=== PATIENT | female | born 1980 | race Caucasian/White ===

== ENCOUNTER 2025-04-01 09:28 | Outpatient (AMB) | payer OTHER, SELFPAY ==
[2025-04-01 09:59] VITALS: BMI 36.6
--- NOTE | 2025-04-01 09:59 | HO.SPINEOV ---
Vital Signs 04/01/25 09:59 Height 5 ft 5 in Weight 220 lb BMI 36.6 Intake Visit Reasons: low back pain Intake Note: Ms. Martinez is here today c/o Low back pain. MRI done at [place]. Electrical Lineworker Required: No Allergies tramadol Allergy (Unknown, Verified 04/01/25 10:00) Unknown trazodone Allergy (Unknown, Verified 04/01/25 10:00) Unknown Physical Exam Vital Signs: BMI result Body Mass Index 36.6 Assessment & Plan Assessment & Plan (1) Lumbar degenerative disc disease: Code(s): M51.369 - Other intervertebral disc degeneration, lumbar region without mention of lumbar back pain or lower extremity pain Category: Medical (2) Chronic SI joint pain: Code(s): M53.3 - Sacrococcygeal disorders, not elsewhere classified; G89.29 - Other chronic pain Category: Medical Plan Dear Ashley, Thank you for referring Mrs Martinez to our office today. She is a 44-year-old female history of IV drug abuse, heroin and cocaine use, history of 3 previous back surgeries, the last 1 being an anterior lumbar interbody fusion 12 years ago. She was doing well in her usual state of health with regard to her back until about 4 months ago when she started to notice a right-sided low back pain that began radiating down into her right hip. She will also feel intermittent pain down her leg as well and a sensation that her leg is going to give out. She is very active on a farm and this pain has caused her to have to stop a lot of the activity she was doing and helping out with. She was take [id number] pain medications to help, and will drink alcohol to help alleviate the pain. She has not used any opiates thus far and this process due to the risk of addiction. She comes in today with an MRI showing postsurgical changes and synovial cyst at L3-4. She has done no conservative treatment up to this point. PMH: Hypertension, diabetes with what she tells me as an A1c of 7.4, high cholesterol, ADHD, depression, history of IV drug abuse with MRSA infection and osteomyelitis in her back about 5 years ago. History of anterior lumbar interbody fusion, 3 shoulder surgeries, ulnar nerve release, carpal tunnel release, 2 C-sections. There may also be an issue with her pancreas but she could not quite give me details as to what that was but maybe related to alcohol use. Denies any cardiopulmonary issues but she does take a an inhaler to help with breathing at times. My suspicion is that she has a mild COPD or asthma could be the problem. Denies any history of bleeding disorders, blood clots, cancer, liver or renal disease. Social hx: She smokes a half a pack a day, she drinks at least 6 pack of beer a day, does not use any recreational drugs nor any heart or illicit drugs. She has been sober for 5 years. Medications: [place] 3, propranolol, Crestor, Celexa, losartan, Combivent and Mounjaro Allergies: Trazodone, tramadol Physical exam: Awake alert oriented no acute distress, she has tenderness over palpation of the right SI joint, positive pain in the hip in the right low back with JOSÉ MIGUEL testing. Positive Gaenslen test. Strength and reflexes otherwise normal. She has a scar in her anterior abdomen which is well healed Kaela large scar in her back which is well healed. Imaging review: Lumbar MRI done at [facility] shows postsurgical changes L4-5 L5-S1 with anterior lumbar interbody cages, postsurgical changes in the soft tissues of the posterior lumbar spine. Her L3-4 disc looks quite good, there is no malalignment. No other significant degenerative changes found. There is a small posteriorly projecting synovial cyst at L3-4. We sent the patient for standing flexion-extension x-rays which showed no signs of instability. Impression: 44-year-old female with an extensive lumbar history as outlined above with laminectomies, anterior lumbar interbody fusion 12 years ago, remote history of IV drug abuse 5 years ago with osteomyelitis of the lumbar spine, presents with acute onset right-sided low back pain radiating into her hip, to some degree down her leg. Dr. Aguilar and I reviewed her imaging, we do not have a clear explanation for her pain. Based on the localization of where it is in the lumbar spine, it does seem to radiate over the SI joint. She does have some positive provocative tests for SI joint inflammation. We are going to send her for an SI joint injection on the right side and see if we can make a diagnosis here. If that does not help, I am not sure if there is anything more we can do for her as there are no major structural abnormalities in the lumbar spine that look amenable to surgery. Thank you for allowing us to care for your patient. The total time spent with this visit with this patient was 45 minutes reviewing history, physical exam, lumbar imaging review, and implementation of treatment plan or further diagnostic testing oBwen Aguilar MD,PhD [facility] Orders: Orders XR lumbar spine 4V min Today M51.369 - Other intervertebral disc degeneration, lumbar region without mention of lumbar back pain or lower extremity pain Referrals Physiatry Referral G89.29 - Other chronic pain, M53.3 - Sacrococcygeal disorders, not elsewhere classified Coding Level of Care Code New Pt Level 4 (64663) Diagnoses Lumbar degenerative disc disease M51.369 Chronic SI joint pain M53.3; G89.29
--- OUTSIDE RECORDS SUMMARY | 2025-04-01 10:11 | XMS_ITS | Clinical Summary ---
Author Organization [facility] Address [address] [id number] Care Team Providers Care Np Name Role Phone Jamee De La Cruz Primary Care Provider [phone] Allergies Active Allergy Reactions Criticality Noted Date Comments Hydromorphone Vomiting 03/27/2022 Tramadol Hives 03/27/2022 Trazodone Heartburn 03/27/2022 Medications albuterol (PROAIR HFA,VENTOLIN HFA) 90 mcg inhaler ProAir HFA 108 (90 Base) MCG/ACT Inhalation Aerosol Solution INHALE 1 TO 2 PUFFS EVERY 6 HOURS NEEDED. Quantity: 1; Refills: 3 MIGUE RAMIREZ M.D.; Started 18-Feb-2012 Active8.5 GM Inhaler 2 Active QUEtiapine (SEROquel) 50 mg tablet Take 50 mg by mouth nightly. 2 Active propranoloL (INDERAL) 20 mg tablet Take 20 mg by mouth 2 times a day as needed. 1 Active escitalopram (LEXAPRO) 10 mg tablet Take 10 mg by mouth once a day. 2 Active lisinopriL (PRINIVIL,ZESTR IL) 10 mg tablet Take 10 mg by mouth once a day. 2 Active gabapentin (NEURONTIN) 400 mg capsule Take 400 mg by mouth 3 times a day. 2 Active dextroamphetami ne-amphetamine (ADDERALL) 20 mg tablet Take 20 mg by mouth once a day. 2 Active PARoxetine (PAXIL) 20 mg tablet PARoxetine HCl - 20 MG Oral Tablet TAKE 1/2 tab in am for 5 days, then take 1 tab for 5 day, then take, 1 AND 1/2 TABLETS DAILY. Quantity: 30; Refills: 0 CORWIN, GIOVANA ; Started Active 5 Active Combivent Respimat 20-100 mcg/actuation inhaler 1 puff every 6 hours as needed. 2 Active Active Problems Problem Noted Date Diagnosed Date Bipolar affective 03/02/2014 Cocaine abuse 11/25/2013 Opiate dependence 11/10/2013 ADHD (attention deficit hype ractivity disorder), combined type 06/01/2013 Generalized anxiety disorder 06/01/2013 Pain in joint of left shoulder 12/18/2012 Stress incontinence in female 01/13/2012 Chronic pain of left elbow 01/13/2012 Tobacco abuse counseling 10/17/2011 Lumbago 08/06/2009 Depression 08/06/2009 Family History Medical History Relation Name Comments Other Brother 1 Family history of Panic disorder with agoraphobia Other Brother 2 Family history of Anxiety, generalized Other Brother 3 Family History of alcoholism Other Brother 4 Family History of substance abuse Other Father Family History of attention deficit hyperactivity disorder (ADHD) Other Mother Family History of attention deficit hyperactivity disorder (ADHD) Relation Name Status Comments Brother 1 Brother 2 Brother 3 Brother 4 Father Mother Social History Tobacco Use Types Packs/Day Years Used Date Smoking Tobacco: Every Day Tobacco Cessation:Ready to Q uit: Not Asked; Counseling Given: Not Answered Comments:: Comments Unknown Sex and Gender Information Value Date Recorded Sex Assigned at Female 03/26/2022 11:19 AM EDT Legal Sex Female 12:08 AM EDT Gender Identity Female 03/26/2022 11:19 AM EDT Sexual Orientation Choose not to disclose 2021 11:19 AM EDT Sexual Orientation Don't know 03/26/2022 11 :19 AM EDT Last Filed Vital Signs Vital Sign Reading Time Taken Comments Blood Pressure 142/100 03/27/2022 11:38 AM EDT Pulse 81 03/27/2022 11:38 AM EDT Temperature 37.1 C (98.7 F) 11/11/2011 11:41 AM EDT Respiratory Rate - - Oxygen Saturation 99% 06/15/2014 2:14 PM EST Inhaled Oxygen Concentration - - Weight 85.3 kg (188 lb) 03/27/2022 11:38 AM EDT Height 160 cm (5' 3 ) 03/27/2022 11:38 AM EDT Body Mass Index 33.3 03/27/2022 11:38 AM EDT Plan of Treatment Health Maintenance Due Date Last Done Comments Cervical Cancer Screening 1980 HIV Screening 1980 HPV and Pap Smear 1980 Hepatitis C Screening 1980 Pap Smear 1980 Varicella Vaccines (1 of 2 - 13+ 2-dose series) 1993 Hepatitis B Vaccines (1 of 3 - 19+ 3-dose series) 09/28 DTaP,Tdap,and Td Vaccines (1 - Tdap) 09/30/200507/2005 Mammogram 2020 Pneumococcal Vaccine: Pediat elma (0-5 Years) and At-Risk Patients (6-50 Years) (2 of 2 - PCV) 03/14/2021 03/14/2020 Alcohol/Substance Use Screening 06/30/2024 Depression Screening and Follow-Up 06/30/2024 Social Drivers of Health Annual Screening 06/30/2024 COVID-19 Vaccine (2 - 2024- season) 02/28/202502/2021 Influenza Vaccine (#1) 2025 RSV Vaccine (60+ years old a nd patients) (1 - 1-dose 75+ series) 10/13/2055 Insurance [facility] Advance Directives Documents on File Type Date Recorded Patient Carbonizer Tester Expl anation Advance Directive 09/09/2008 12:00 AM sb Thompson edical Dec Making (Adv.Dir) Advance Directive 09/09/2008 12:00 AM sb Thompson edical Dec Making (Adv.Dir) Advance Directive 04/16/2007 12:00 AM augusto Medical Decision Making (Adv.Dir) Care Teams Np Relationship Specialty Start Date End Date Jamee De La Cruz [address] [place] [address] PCP - General Internal Medicine 01/25/22
--- OUTSIDE RECORDS SUMMARY | 2025-04-01 10:11 | XMS_ITS | Clinical Summary ---
Author Organization [facility] Address [id number] [place] [id number] Care Team Providers Care Audio Video Technician Name Role Phone Frederic Aguirre MD Primary Care Provider [phone] Surgical History Surgery Date Site/Laterality Comments BACK SURGERY PROCEDURE: HISTORICAL BACK SURGERY; COMMENT: x3, last 05/15 SHOULDER SURGERY Bilateral PROCEDURE: HISTORICAL SHOULDER SURGERY; COMMENT: 2 on R, 1 on L SECTION PROCEDURE: HISTORICAL DELIVERY; COMMENT: x2 TUBAL LIGATION PROCEDURE: HISTORICAL TUBAL LIGATION CARPAL TUNNEL RELEASE 05/06/16 Right PROCEDURE: HISTORICAL CARPAL TUNNEL REL Family History Medical History Relation Name Comments Coronary artery disease Father Diabetes Father Hypertension Mother Lung cancer Mother Relation Name Status Comments Father Mother Social History Tobacco Use Types Packs/Day Years Used Date Smoking Tobacco: Every Day Cigarettes Smokeless Tobacco: Never Alcohol Use Standard Drinks/Week Comments No 0 (1 standard drink = 0.6 oz pur e alcohol) Comments Unknown Sex and Gender Information Value Date Recorded Sex Assigned at Not on file Legal Sex Female 11:47 AM EST Gender Identity Not on file Sexual Orientation Not on file Obstetrics History Plan of Treatment Health Maintenance Due Date Last Done Comments Breast Cancer Screening 1980 DTaP,Tdap,and Td Vaccines (1 - Tdap) 10/13/1999 Hepatitis B Vaccines (1 of 3 - 19+ 3-dose series) 10/13/1999 Cervical Cancer Screening: P ap Smear 2001 HPV Vaccines (1 - 3-dose SCD M series) 10/13/2007 Depression Screening 06/30/2024 COVID-19 Vaccine ( - 2023-2 5 season) 2025 Influenza Vaccine (#1) 2025 RSV Immunization Adult Patie nts (1 - 1-dose 75+ series) 10/13/2055 HIB Vaccines Aged Out No longer eligi ble based on patient's age to complete this topic Hepatitis A Vaccines Aged Out No long er eligible based on patient's age to complete this topic IPV Vaccines Aged Out No longer eligi ble based on patient's age to complete this topic MMR Vaccines Aged Out No longer eligi ble based on patient's age to complete this topic Meningococcal ACWY Vaccine Aged Out N o longer eligible based on patient's age to complete this topic Meningococcal B Vaccine Aged Out No l onger eligible based on patient's age to complete this topic Pneumococcal Vaccine: Pediat rics (0 to 5 Years) and At-Risk Patients (6 to 49 Years) Aged Out No longer eligible b ased on patient's age to complete this topic RSV Immunization Patients Un caty 20 months Aged Out No longer eligible b ased on patient's age to complete this topic Varicella Vaccines Aged Out No longer eligible based on patient's age to complete this topic Care Teams Audio Video Technician Relationship Specialty Start Date End Date Frederic Aguirre MD PCP - General Internal Medicine 03/27/16
== END 2025-04-01 11:08 | disposition home or self-care (01) ==
LOC: HO.HNS 09:29
PROVIDERS: PCP Physician Assistant; Referring Provider Physician Assistant; Visit Provider Physician Assistant
DX: M51.369 Other intervertebral disc degeneration, lumbar region without mention of lumbar back pain or lower extremity pain (principal); M53.3 Sacrococcygeal disorders, not elsewhere classified; G89.29 Other chronic pain
CPT/HCPCS: 99204

== ENCOUNTER 2025-04-01 09:28 | Outpatient (REF) | payer OTHER, SELFPAY ==
--- NOTE | ~2025-04-01 | XR_ITS ---
EXAMINATION: XR LUMBOSACRAL SPINE CLINICAL INFORMATION: M51.369 - Other intervertebral disc degeneration, lumbar region without ... COMPARISON: None available. TECHNIQUE: 4 views of the lumbar spine, inclusive of flexion and extension views, were obtained. FINDINGS: There is a gentle right convex thoracolumbar scoliosis, apex at T12-L1. There is a mildly exaggerated lumbar lordosis. There is a 7 mm anterolisthesis of L4 on L5 on the neutral view. No additional subluxation. No fracture, compression deformity, or suspicious bone lesion present. There has been prior fusion of L4-5 with titanium disc cages, and L5-S1 with carbon fiber disc graft. Hardware appears well situated. There are surgical clips ventral to L4 and L5. Disc spaces demonstrate mild diffuse disc degeneration. There is moderate facet degeneration most significant at L4-S1. Flexion and extension views demonstrate no change in anterolisthesis at L4-5. No developing subluxation. No evidence of instability. No soft tissue abnormalities are evident. XR/XR lumbar spine 4V min IMPRESSION: 1. No acute bony abnormalities of the lumbar spine. 2. No evidence of instability on flexion and extension views. There is a stable 7 mm anterolisthesis of L4 on L5. 3. Mild to moderate degenerative spondylosis, most significant in the lower lumbar spine. 4. Fusion of L4-5 and L5-S1 without definite radiographic complication. Electronically signed by: Claude Horta MD 04/01/2025 11:26 AM EDT
== END 2025-04-01 09:29 | disposition home or self-care (01) ==
LOC: HO.HOSX 09:28
PROVIDERS: PCP Physician Assistant; Referring Provider Physician Assistant; Visit Provider Physician Assistant
DX: M51.360 Other intervertebral disc degeneration, lumbar region with discogenic back pain only (principal); M53.3 Sacrococcygeal disorders, not elsewhere classified; G89.29 Other chronic pain
CPT/HCPCS: 72110

== ENCOUNTER → 2025-04-01 10:29 | Outpatient (BNV) | payer OTHER, SELFPAY | PROVIDERS: PCP Physician Assistant; Referring Provider Physician Assistant; Visit Provider Radiology Diagnostic Radiology | DX: M47.816 Spondylosis without myelopathy or radiculopathy, lumbar region (principal) | CPT/HCPCS: 72110 ==

== ENCOUNTER 2025-05-20 07:04 | Outpatient (REF) | payer OTHER, SELFPAY | END 2025-05-20 07:05 | disposition home or self-care (01) | LOC: HO.HPHYSR 07:04 | PROVIDERS: PCP Physician Assistant; Visit Provider Physical Medicine & Rehabilitation | DX: M46.1 Sacroiliitis, not elsewhere classified (principal); M53.3 Sacrococcygeal disorders, not elsewhere classified; G89.29 Other chronic pain | CPT/HCPCS: 27096; J2003; J3301; Q9967 ==

== ENCOUNTER 2025-05-20 07:04 | Outpatient (AMB) | payer OTHER, SELFPAY ==
--- OUTSIDE RECORDS SUMMARY | 2025-05-20 07:06 | XMS_ITS | Clinical Summary ---
Author Organization [facility] Address [address] [place] [address] Care Team Providers Care Master Tax Advisor Name Role Phone Jamee De La Cruz Primary Care Provider Allergies Active Allergy Reactions Criticality Noted Date [...] Screening 1980 HPV and Pap Smear 1980 Pap Smear 1980 Varicella Vaccines (1 of 2 - 13+ 2-dose series) 1993 Hepatitis B Vaccines (1 of 3 - 19+ 3-dose series) 09/28 DTaP,Tdap,and Td Vaccines (1 - Tdap) 09/30/2005 0407/2005 Mammogram 2020 Pneumococcal Vaccine: Pediat elma (0-5 Years) and At-Risk Patients (6-50 Years) (2 of 2 - PCV) 03/14/2021 03/14/2020 Alcohol/Substance Use Screening 06/30/2024 Influenza Vaccine (#1) 2025 COVID-19 Vaccine (2 - season) 02/28/202502/2021 Insurance [facility] Advance Directives Documents on File Type Date Recorded Patient Career Services Coordinator Expl anation Advance Directive 09/09/2008 12:00 AM M edical Dec Making (Adv.Dir) Advance Directive 09/09/2008 12:00 AM M edical Dec Making (Adv.Dir) Advance Directive 04/16/2007 12:00 AM [facility] Medical Decision Making (Adv.Dir) Care Teams Master Tax Advisor Relationship Specialty Start Date End Date Jamee De La Cruz [address] [place] [id number] PCP - General Internal Medicine 01/25/22
--- OUTSIDE RECORDS SUMMARY | 2025-05-20 07:06 | XMS_ITS | Clinical Summary ---
Author Organization [facility] Address [address] [place] [phone] Phone Care Team Providers Care Billing Clerk Name Role Phone Frederic Aguirre MD Primary Care Provider [phone] Surgical History Surgery Date Site/Laterality Comments BACK [...] Td Vaccines (1 - Tdap) 10/13/1999 Hepatitis A Vaccines (1 of 2 - Risk 2-dose series) 10/13/1999 Hepatitis B Vaccines (1 of 3 - 19+ 3-dose series) 10/13/1999 Pneumococcal Vaccine: Pediat rics (0 to 5 Years) and At-Risk Patients (6 to 49 Years) (1 of 2 - PCV) 10/13/1999 Cervical Cancer Screening: P ap Smear 2001 HPV Vaccines (1 - 3-dose SCD M series) 10/13/2007 Depression Screening 06/30/2024 COVID-19 Vaccine (1 - 2024-2 6 season) 2025 Influenza Vaccine (#1) 2025 Cholesterol Screening (Lipid Panel) 04/20/2025 HIV Screening 04/20/2025 Hepatitis C Screening 04/20/2025 Hypertension/CHF/CAD Annual BMP Blood Test 04/20/2025 Social Influencers of Health Screening 04/20/2025 RSV Immunization Adult Patie nts (1 - [...] on patient's age to complete this topic Insurance [place] Member Subscriber Plan / Payer (Ef fective 2025-Present) Name:POOL SMITH Relation to Subscriber:Self Name:Pool Smith Payer ID:[id number] Group ID:Not on file Type:Not on file Address: [facility] ATTN:CLAIM[employer] [address] [place] [id number] [place] [address] Care Teams Billing Clerk Relationship Specialty Start Date End Date Frederic Aguirre MD PCP - General Internal Medicine 03/27/16
--- NOTE | 2025-05-20 07:12 | A.PHYSOV_ITS ---
Vital Signs 05/20/25 07:14 Height 5 ft 5 in Weight 204 lb BMI 33.9 BP 119/90 H Intake Visit Reasons: Right Sacroiliac Joint Injection Intake Note: Patient is a 44 year old female in office today for a right sacroiliac joint injection. Pharmacy Picking Technician Required: No Allergies hydromorphone (From Dilaudid) Allergy (Unknown, Verified 05/20/25 07:16) Unknown tramadol Allergy (Unknown, Verified 04/01/25 10:00) Unknown trazodone Allergy (Unknown, Verified 04/01/25 10:00) Unknown [facility] Medical History (Updated 05/20/25 @ 07:29 by Lamont Garcia DO) Sacroiliac inflammation Surgical History History of carpal tunnel surgery (Unknown) H/O shoulder surgery (Unknown) History of (Unknown) History of back surgery (Unknown) Social History Alcohol intake: current Alcohol intake frequency: a few times a week Patient Tobacco Use Status: Current everyday Tobacco user Use of substances other than those prescribed or required for medical reasons: No Current occupational status: unemployed and disabled Physical Exam Vital Signs: Last Vital Signs BP 119/90 H 05/20/25 07:14 BMI result Body Mass Index 33.9 Office Procedures AMB Sacroiliac Joint Injection AMB Sacroiliac Joint Injection Procedure Details: Procedure performed: Right sacroiliac joint injection Preop diagnosis: SI joint mediated pain, sacroiliitis Postop diagnosis: The same After informed consent was obtained patient was brought into the procedure room and placed in prone position on the procedure table. Skin over lumbar sacral area was prepped and draped in the usual sterile manner. The inferior portion of the right sacroiliac joint was visualized utilizing fluoroscopy. 3.5 in 22 gauge spinal needle was introduced percutaneously and advanced into the joint. Needle placement was verified utilizing 0.5 cc of Omnipaque contrast solution. 2.5 cc of therapeutic solution containing 40 mg of triamcinolone and 2% lidocaine was injected after negative aspiration for blood. The C-arm was obliqued about 30? in the contralateral direction an area just medial the proximal portion of the sacroiliac joint was visualized. 3.5 in 22 gauge spinal needle was introduced percutaneously and advanced to enter the area. Once in place, needle placement was identified utilizing 1 cc of Omnipaque contrast solution. Total volume of 2.5 cc containing 40 mg of triamcinolone and 2% lidocaine was injected to block the lateral branches at the sacroiliac ligament. Radiation exposure was documented in the chart. Sacroiliac Joint Injections 58651 - use with FL Gd order: Right All charges added?: Procedure code (CPT) selection complete Office Meds Kenalog 40 mg/mL suspension for injection Performing Provider: Lamont Garcia DO Performing Location: [facility] Administered by: Lamont Garcia DO on 05/20/25 07:34 Dose Route Admin Location Dispensed Lot Number Expiration Date [facility] Oven Tender 80 mg intra-articular 2 mL [id number] [employer] Total Dispensed Waste 2 mL 0 % lidocaine (PF) 20 mg/mL (2 %) injection solution Performing Provider: Lamont Garcia DO Performing Location: [facility] Administered by: Lamont Garcia DO on 05/20/25 07:34 Dose Route Admin Location Dispensed Lot Number Expiration Date [facility] Oven Tender 120 mg intra-articular 10 mL [id number] [facility] PHAR Total Dispensed Waste 10 mL 40 % Omnipaque 300 300 mg iodine/mL intravenous solution Performing Provider: Lamont Garcia DO Performing Location: [facility] Administered by: Lamont Garcia DO on 05/20/25 07:34 Dose Route Admin Location Dispensed Lot Number Expiration Date [facility] Oven Tender 3 mL intra-articular 10 mL [id number] [employer] Total Dispensed Waste 10 mL 70 % Assessment & Plan Assessment & Plan (1) Chronic SI joint pain: Code(s): M53.3 - Sacrococcygeal disorders, not elsewhere classified; G89.29 - Other chronic pain Category: Medical Plan: Right SI joint injection was performed today (2) Sacroiliac inflammation: Code(s): M46.1 - Sacroiliitis, not elsewhere classified Category: Medical Plan: Right SI joint injection Plan Right SI joint injection Orders: Orders FL Guided Sacroiliac Jt Inj RT Today G89.29 - Other chronic pain, M46.1 - Sacroiliitis, not elsewhere classified, M53.3 - Sacrococcygeal disorders, not elsewhere classified AMB Sacroiliac Joint Injection Today G89.29 - Other chronic pain, M46.1 - Sacroiliitis, not elsewhere classified, M53.3 - Sacrococcygeal disorders, not elsewhere classified Coding Level of Care Code Procedure Only Diagnoses Chronic SI joint pain M53.3; G89.29 Sacroiliac inflammation M46.1 CPT Codes AMB Sacroiliac Joint Injection - Hip intraarticular Injection - 36586: Right ([id number])
[2025-05-20 07:14] VITALS: BP 119/90; BMI 33.9
== END 2025-05-20 07:56 | disposition home or self-care (01) ==
LOC: HO.HPHYS 07:05
PROVIDERS: PCP Physician Assistant; Visit Provider Physical Medicine & Rehabilitation
DX: M53.3 Sacrococcygeal disorders, not elsewhere classified (principal); M46.1 Sacroiliitis, not elsewhere classified
CPT/HCPCS: 27096

== ENCOUNTER 2025-06-09 13:39 | Outpatient (AMB) | payer OTHER, SELFPAY ==
--- NOTE | 2025-06-09 13:52 | A.PHYSOV_ITS ---
Vital Signs 06/09/25 13:57 Height 5 ft 5 in Weight 205 lb BMI 34.1 Intake Visit Reasons: F/U after injection 05/20/2025 Intake Note: Patient is a 44 year old female in office today for a follow up after a Right Sacroiliac Joint Injection on 05/20/25 pain has jumped to the left side and the left hip has been bothing with pain as well Allergies hydromorphone (From Dilaudid) Allergy (Unknown, Verified 06/09/25 13:56) Unknown tramadol Allergy (Unknown, Verified 06/09/25 13:56) Unknown trazodone Allergy (Unknown, Verified 06/09/25 13:56) Unknown HPI Comments Details: History of Present Illness The patient is a 44 year old female presenting for a follow-up evaluation after a right sacroiliac joint injection and for assessment of new-onset left-sided pain. She underwent a right SI joint injection on May 20, 2025, which provided approximately 80% relief of her right-sided pain. However, she now reports new pain on the left side, which is similar in character to the previous right-sided pain and radiates into the hip. The patient has a history of prior spinal fusions, and the current pain is located below the fused area. Her surgeon, Dr. Aguilar, had recommended the SI joint injections as a diagnostic measure to determine if she would be a cand idate for an SI joint fusion. Separately, the patient reports a history of a prior left shoulder injection that resolved her pain on that side, but she now has pain in her right shoulder. Pain Description - Location: Pain is currently on the left side, migrating from the right side. - Radiation: The left-sided pain radiates into the hip. - Prior Interventions: A right sacroiliac joint injection provided approximately 80% pain relief on that side before new pain began on the left. - Other Pain: Patient also reports new pain in the right shoulder after successful treatment of the left shoulder. Results - Procedures: Patient underwent a right sacroiliac joint injection on May 20, 2025. [facility] Medical History (Updated 06/10/25 @ 14:13 by SHELIA Mendez) Sacroiliac inflammation Surgical History History of carpal tunnel surgery (Unknown) H/O shoulder surgery (Unknown) History of (Unknown) History of back surgery (Unknown) Social History Alcohol intake: current Alcohol intake frequency: a few times a week Patient Tobacco Use Status: Current everyday Tobacco user Current occupational status: unemployed and disabled Review of Systems Narrative Review of Systems - Musculoskeletal: Reports new left-sided pain that radiates into the hip and pain in the left shoulder. - Denies significant right-sided pain post-injection. Physical Exam Exam Exam: Physical Exam Examination of her right shoulder, there is no visible swelling or deformity. She is tender to the lateral deltoid. She has full range of motion of her shoulder in all planes. She has 5/5 rotator cuff strength throughout. She has a positive Neer test. Negative empty can test. Full range of motion of her elbow wrist and hand. Equal motion picture commentator strength bilaterally. Lumbar Spine: She is less tender to the right sacroiliac joint. She is tender to the left SI joint to palpation. She has full range of motion of the lumbar spine. She does have an increase in pain with facet loading. Special Tests: Lhermittes sign was negative Heel Toe walk is normal Left straight leg raise: Negative Right straight leg raise: Negative Special tests Ruddy test is positive left Ganslen's test is positive left SI Joint compression test positive left Comfort test negative Piriformis stretch is negative Lower Extremities: Full range of motion bilateral lower extremities. No calf pain or edema. Neuro: Sensation: Intact to lower extremities bilaterally Strength L2 (Psoas): 5/5 on the left and 5/5 on the right. L3 (Quads): 5/5 on the left and 5/5 on the right. L4 (Ant tibialis): 5/5 on the left and 5/5 on the right. L5 (EHL) 5/5 on the left and 5/5 on the right. S1 (Gastroc): 5/5 on the left and 5/5 on the right. DTR L4: (Patellar) Left 2 Right 2 S1: (Achilles) Left 2 Right 2 Babinski Downgoing No pathologic clonus. No involuntary movement. Vital Signs: BMI result Body Mass Index 34.1 Office Procedures AMB Shoulder Injection AMB Shoulder Injection Procedure Details: Right Subacromial injection Procedure: The patient was educated about risks, complications and benefits including but not limited to increased serum glucose, infection, nerve damage, bleeding, tendon/ligament damage and pain. We agree with a subacromial injection is the next best step in the treatment plan. Verbal consent was obtained. Using aseptic technique, the skin was cleansed with Betadine. Ethyl chloride was used to desensitize the skin. Using a posterior approach, 40 mg of Kenalog and 3 mL 2% lidocaine were injected using a 25-gauge inch and a half needle into the subacromial space. The patient tolerated the procedure well without immediate complication. Postinjection instructions were given. Shoulder Injection - : Right All charges added?: Procedure code (CPT) selection complete Office Meds Kenalog 40 mg/mL suspension for injection Performing Provider: SHELIA Mednez [facility] Administered by: SHELIA Mendez on 06/10/25 14:16 Dose Route Admin Location Dispensed Lot Number Expiration Date [facility] [employer] 40 mg intrabursal 1 mL [id number] [employer] Total Dispensed Waste 1 mL 0 % lidocaine (PF) 20 mg/mL (2 %) injection solution Performing Provider: SHELIA Mendez Performing Location: [facility] Administered by: SHELIA Mendez on 06/10/25 14:16 Dose Route Admin Location Dispensed Lot Number Expiration Date [facility] [employer] 60 mg intrabursal 5 mL [id number] [employer] Total Dispensed Waste 5 mL 40 % Assessment & Plan Assessment & Plan (1) Chronic SI joint pain: Code(s): M53.3 - Sacrococcygeal disorders, not elsewhere classified; G89.29 - Other chronic pain Category: Medical (2) Sacroiliac inflammation: Code(s): M46.1 - Sacroiliitis, not elsewhere classified Category: Medical (3) Impingement of right shoulder: Code(s): M25.811 - Other specified joint disorders, right shoulder Category: Medical Plan Pain Management - Analgesia: The patient reports she received a right-sided SI joint injection on May 20, 2025, which resulted in an 80% improvement in her right-sided pain. - She is now experiencing similar pain on her left side that radiates into the hip. Plan Patient was informed and verbally consented to the use of an ambient scribe for clinic note documentation during this visit. 1. Left Sacroiliac Joint Dysfunction The patient's excellent response to a right SI joint injection and her current presentation of similar symptoms on the left side are highly suggestive of left sacroiliac joint dysfunction. The successful right-sided block serves as a positive diagnostic indicator for her surgeon, Dr. Aguilar, regarding potential surgical fusion. The plan is to proceed with a left sacroiliac joint injection, for which insurance authorization will be obtained. The procedure will be performed by Dr. Escalante, with a follow-up scheduled with me three weeks afterward. The patient was advised to follow up with her surgeon to discuss these results for consideration of a definitive fusion procedure. 2. Left Shoulder Pain The patient reports new right shoulder pain, noting a previous left shoulder injection was successful. Further evaluation of the right shoulder pain will be performed. Discussion Notes I discussed the results of the patient's right SI joint injection from May 20, 2025. She confirmed about 80% pain relief on the right side but now has new, similar pain on the left. We agreed to proceed with a left-sided SI joint injection. I explained that we will need to obtain insurance authorization for the procedure and that Dr. Garcia will perform the injection. I scheduled a three- week follow-up visit with her after the procedure. I reinforced that the successful outcome of the right-sided block is important information for her surgeon, Dr. Aguilar, and advised her to follow up with his office to discuss the potential for a surgical fusion. I also clarified that our practice provides injections, which can be repeated every four months, but we do not perform surgery. Patient Instructions - Our office will schedule you for a left sacroiliac (SI) joint injection with Dr. Escalante after we get approval from your insurance. - Please schedule a follow-up appointment with me 3 weeks after your injection. - You should contact your surgeon, Dr. Aguilar, to let him know that the right- sided injection worked very well. - This information will help him decide if a fusion surgery is the right next step for you. - If needed, these injections can be repeated every four months. Orders: Orders AMB Shoulder Injection 06/09/25 M25.811 - Other specified joint disorders, r ight shoulder Coding Level of Care Code Tele Est Pt Level 4 (57106) Diagnoses Chronic SI joint pain M53.3; G89.29 Sacroiliac inflammation M46.1 Impingement of right shoulder M25.811 CPT Codes AMB Shoulder Injection - Hip/Bursa Injection - 96533: Right ([id number]) Time Spent (min) 30 Comment Thirty minutes reviewing the medical record and imaging, seeing the patient and documentin
[2025-06-09 13:57] VITALS: BMI 34.1
--- OUTSIDE RECORDS SUMMARY | 2025-06-09 20:54 | XMS_ITS | Clinical Summary ---
Author Organization [facility] Address [address] [id number] Care Team Providers Care Microwave Technician Name Role Phone Jamee De La Cruz Primary Care Provider [phone] Allergies Active Allergy Reactions Criticality Noted Date [...] COVID-19 Vaccine (2 - season) 02/28/202502/2021 Insurance [facility] Advance Directives Documents on File Type Date Recorded Patient Manager Pmo Expl anation Advance Directive 09/09/2008 12:00 AM M edical Dec Making (Adv.Dir) Advance Directive 09/09/2008 12:00 AM M edical Dec Making (Adv.Dir) Advance Directive 04/16/2007 12:00 AM [facility] Medical Decision Making (Adv.Dir) Care Teams Microwave Technician Relationship Specialty Start Date End Date Jamee De La Cruz [address] [place] [id number] PCP - General Internal Medicine 01/25/22
--- OUTSIDE RECORDS SUMMARY | 2025-06-09 20:54 | XMS_ITS | Clinical Summary ---
Author Organization [facility] Address [address] [place] [id number] Phone Care Team Providers Care Web Designer Name Role Phone Frederic Aguirre MD Primary Care Provider [phone] Surgical History Surgery Date Site/Laterality Comments BACK [...] on file Sexual Orientation Not on file Plan of Treatment Health Maintenance Due Date [...] Depression Screening 06/30/2024 COVID-19 Vaccine ( - 2024-2 6 season) 2025 Influenza Vaccine [...] ID:Not on file Type:Not on file [facility] ATTN:[employer] [address] [place] [id number] [place] [address] Care Teams Web Designer Relationship Specialty Start Date End Date Frederic Aguirre MD PCP - General Internal Medicine 03/27/16
== END 2025-06-09 14:37 | disposition home or self-care (01) ==
LOC: HO.HPHYS 13:39
PROVIDERS: PCP Physician Assistant; Visit Provider Physician Assistant
DX: M53.3 Sacrococcygeal disorders, not elsewhere classified (principal); G89.29 Other chronic pain; M46.1 Sacroiliitis, not elsewhere classified; M25.811 Other specified joint disorders, right shoulder
CPT/HCPCS: 20610; 99214

== ENCOUNTER → 2025-06-09 13:39 | Outpatient (BNVA) | payer OTHER, SELFPAY | PROVIDERS: PCP Physician Assistant; Visit Provider Physician Assistant | DX: M25.811 Other specified joint disorders, right shoulder (principal); M46.1 Sacroiliitis, not elsewhere classified; M53.3 Sacrococcygeal disorders, not elsewhere classified; G89.29 Other chronic pain; M25.512 Pain in left shoulder; M25.511 Pain in right shoulder | CPT/HCPCS: 20610; J2003; J3301 ==